=== PATIENT | female | born 1935 | race Caucasian/White ===

== ENCOUNTER 2018-08-09 14:49 | Emergency (ER) | payer MEDICARE, BC ==
[2018-08-09] MEDS ORDERED: NS 0.9% 1000 ML** 1,000 ML IV ONE (14:59)
[2018-08-09] MEDS ORDERED: Ondansetron INJ* 2 MG/ML VIAL IV ONE (14:59)
[2018-08-09] MEDS ORDERED: Aspirin 81 mg CHEW TAB* 81 MG TAB.CHEW PO ONE (14:59)
[2018-08-09 15:02] VITALS: BP 127/53
--- NOTE | 2018-08-09 15:02 | ED ---
Abdominal Pain/Female - HPI Summary HPI Summary: 83-year-old female brought in by family member with abrupt onset of upper abdominal pain becoming chest pain approximately 30 minutes ago. This was associated with vomiting as well and a weak feeling. She also had some shortness of breath. Her pain in the upper abdomen and chest continues but has gotten better. She denies any fever, back pain or headache. She's never had anything like this in the past. She denies cardiac history. She was trying to get to the ER however got sick and had to come here. 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 Negative: Fever Eyes: Negative ENT: Negative Positive: Chest Pain Positive: Shortness Of Breath. Negative: Cough Positive: Abdominal Pain, Vomiting, Nausea. Negative: Diarrhea Genitourinary: Negative Negative: Decreased ROM Skin: Negative Negative: Headache All Other Systems Reviewed And Are Negative: Yes Physical Exam Triage Information Reviewed: Yes Vital Signs Reviewed: Yes Appearance: Positive: Ill-Appearing, Pain Distress Skin: Positive: Warm, Skin Color Reflects Adequate Perfusion, Dry Head/Face: Positive: Normal Head/Face Inspection Eyes: Positive: EOMI ENT: Positive: Normal ENT inspection Neck: Positive: Supple Respiratory/Lung Sounds: Positive: Clear to Auscultation Cardiovascular: Positive: RRR Abdomen Description: Positive: Nontender, Soft, Other: - Pain out of proportion Musculoskeletal: Positive: Normal, Strength/ROM Intact Neurological: Positive: Normal, Sensory/Motor Intact, Alert, Oriented to Person Place, Time Psychiatric: Positive: Anxious Diagnostics - Laboratory Lab Results: sugar 134 Lab Statement: Any lab studies that have been ordered have been reviewed, and results considered in the medical decision making process. - EKG EKG 1 Cardiac Rate: NL - 81 EKG Rhythm: Sinus Rhythm ST Segment: Non-Specific Ectopy: None EKG Comparison: Other - No others available Summary of EKG Findings: Low-voltage Abdominal Pain Fem Course/Dx - Course Course Of Treatment: Nurse's notes reviewed. Patient presents acutely ill with chest and abdominal pain not appropriate for urgent care. Ambulance service arranged for emergent transport to the ER. Discussed with ER who accepts. EKG nondiagnostic. Zofran, aspirin and IV fluids started. Blood sugar to be checked. - Diagnoses Differential Diagnosis: Positive: Other - Mesenteric ischemia, acute coronary syndrome, gallbladder disease Provider Diagnoses: Chest pain, Abdominal pain, Vomiting - Provider Notifications Discussed Care Of Patient With: Rea Monique - accept to the ER. [facility] arranged. Discharge - Sign-Out/Discharge Documenting (check all that apply): Patient Departure All imaging exams completed and their final reports reviewed: No Studies - Discharge Plan Condition: Guarded Disposition: TRANS HIGHER LVL OF CARE FAC Additional Instructions: go directly to ER - Billing Disposition and Condition Condition: GUARDED Disposition: Trans Higher Lvl of Care Fac - Attestation Statements Document Initiated by Scribe: No
== END 2018-08-09 15:15 | disposition short-term general hospital (02) ==
LOC: UCEAST 14:49
DX: R07.9 Chest pain, unspecified (principal); R11.10 Vomiting, unspecified; R06.02 Shortness of breath; R10.10 Upper abdominal pain, unspecified
CPT/HCPCS: 96374; 99203; A9270-GY; G0463; J2405

== ENCOUNTER 2018-08-09 15:46 | Inpatient (IN) | payer MEDICARE, BC ==
[2018-08-09] MEDS ORDERED: NS 0.9% 1000 ML** 1,000 ML IV ONE (16:26)
--- NOTE | 2018-08-09 16:27 | ED ---
HPI Chest Pain - HPI Summary HPI Summary: Pt is an 83 y/o F presenting to the ED with a chief complaint of pain diffuse across her abd and chest. She woke up this morning with diarrhea, had abd pain, and tried to take off her back brace which did not help so she decided to go to . The pt reports severe nausea and feeling like something is sitting on her chest. She denies vomiting. - History of Current Complaint Chief Complaint: EDGeneral Time Seen by Provider: 08/09/18 16:05 Hx Obtained From: Patient Onset/Duration: Started Hours Ago, Resolved Timing: Constant Initial Severity: Mild Current Severity: None Pain Intensity: 0 Pain Scale Used: 0-10 Numeric Chest Pain Location: Diffuse Chest Pain Radiates: Yes Chest Pain Radiates To:: Epigastric Character: Heaviness Aggravating Factor(s): Nothing Alleviating Factor(s): Nothing Associated Signs and Symptoms: Positive: Chest Pain, Nausea, Back Pain, Abdominal Pain. Negative: Cough, Vomiting - Allergy/Home Medications Allergies/Adverse Reactions: Allergies Allergy/AdvReac Type Severity Reaction Status Date / Time niacin Allergy Unknown Unknown Verified 08/10/18 00:52 Reaction Details codeine Allergy Itching Verified 08/09/18 16:04 PMH/Surg Hx/FS Hx/Imm Hx Previously Healthy: No Endocrine/Hematology History: Denies: Hx Diabetes, Hx Thyroid Disease Cardiovascular History: Reports: Hx Hypertension Denies: Hx Myocardial Infarction Respiratory History: Denies: Hx Asthma, Hx Chronic Obstructive Pulmonary Disease (COPD) - Surgical History Surgery Procedure, Year, and Place: [facility]. T&A Infectious Disease History: No Infectious Disease History: Denies: Hx Hepatitis, Traveled Outside the in Last 30 Days - Family History Known Family History: Positive: Other - no others acutely ill Negative: Cardiac Disease - Social History Alcohol Use: None Hx Substance Use: No Substance Use Type: Reports: None Hx Tobacco Use: No Smoking Status (MU): Never Smoked Tobacco Review of Systems Negative: Fever Positive: Chest Pain Negative: Cough Positive: Abdominal Pain, Diarrhea, Nausea. Negative: Vomiting Positive: Myalgia All Other Systems Reviewed And Are Negative: Yes Physical Exam - Summary Physical Exam Summary: GENERAL: Patient is a well-developed and nourished F who is lying comfortable in the stretcher. Patient is not in any acute respiratory distress. HEAD AND FACE: Normocephalic EYES: PERRLA, EOMI x 2. EARS: Hearing grossly intact. MOUTH: Oropharynx within normal limits. NECK: Supple, trachea is midline, no adenopathy, no JVD, no carotid bruit. CHEST: Symmetric, no tenderness at palpation LUNGS: Clear to auscultation bilaterally. No wheezing or crackles. CVS: Regular rate and rhythm, S1 and S2 present, no murmurs or gallops appreciated. ABDOMEN: Soft, non-tender. Bowel sounds are normal. No abdominal abnormal pulsations. EXTREMITIES: Full ROM in all major joints, no edema, no cyanosis or clubbing. NEURO: Alert and oriented x 3. No acute neurological deficits. Speech is normal and follows commands. SKIN: Dry and warm Triage Information Reviewed: Yes Vital Signs On Initial Exam: Initial Vitals Temp Pulse Resp BP Pulse Ox 97.9 F 72 15 123/59 99 08/09/18 16:02 08/09/18 16:02 08/09/18 16:02 08/09/18 16:02 08/09/18 16:02 Vital Signs Reviewed: Yes Diagnostics - Vital Signs Vital Signs Temp Pulse Resp BP Pulse Ox 08/09/18 16:02 97.9 F 72 15 123/59 99 - Laboratory Result Diagrams: 08/10/18 05:59 08/10/18 05:59 Lab Statement: Any lab studies that have been ordered have been reviewed, and results considered in the medical decision making process. - Radiology Chest x-ray Radiology Interpretation Completed By: Radiologist Summary of Radiographic Findings: No radiographic evidence for acute cardiopulmonary abnormality on this portable chest x-ray. ED physician has reviewed this report. - EKG 1623 Cardiac Rate: NL - 67bpm EKG Rhythm: Sinus Rhythm ST Segment: Normal Ectopy: PACs Summary of EKG Findings: Inverted T-waves in inferior leads. Chest Pain Course/Dx - Course Course Of Treatment: Pt is an 83 y/o F presenting to the ED with a chief complaint of pain diffuse across her abd and chest. She woke up this morning with diarrhea, had abd pain, and tried to take off her back brace which did not help so she decided to go to . The pt reports severe nausea and feeling like something is sitting on her chest. The pt will be signed out to Dr. Kline pending CTA chest and repeat labs due to elevated D-dimer. - Diagnoses Provider Diagnoses: Chest pain Discharge - Sign-Out/Discharge Documenting (check all that apply): Patient Departure, Sign-Out Patient Signing out patient TO: Medardo Kline - Discharge Plan Condition: Stable Disposition: ADMITTED TO [facility] - Billing Disposition and Condition Condition: STABLE Disposition: Admitted to [facility] - Attestation Statements Document Initiated by Scribe: Yes Documenting Scribe: Lidia Dean Provider For Whom Stella is Documenting (Include Credential): Reza Bearden MD. Scribe Attestation: Lidia Schwartz, winsomeed for Reza Bearden MD. on 08/11/18 at 1041. Scribe Documentation Reviewed: Yes Provider Attestation: The documentation as recorded by the Lidia gibson accurately reflects the service I personally performed and the decisions made by Rosanne rouse MD. Status of Scribe Document: Viewed
[2018-08-09 17:16] LABS: Influenza A Molecular NEGATIVE (Negative); Influenza B Molecular NEGATIVE (Negative)
[2018-08-09 17:29] LABS: ABS Basophils 0 10^3/ul (0-0.2); ABS Eosinophils 0.2 10^3/ul (0-0.6); ABS Monocytes 0.5 10^3/ul (0-0.8); ABS Neutrophils 6.4 10^3/ul (1.5-7.7); ABS Nucleated RBC 0 10^3/ul; Eosinophil % 2.8 %; Hematocrit 21 % (35-47); Hemoglobin 7.2 g/dl (12.0-16.0); Lymphocyte % 12.8 %; Mean Corpuscular HGB Conc 34 g/dl (31-36); Mean Corpuscular Hemoglobin 32 pg (27-31); Mean Corpuscular Volume 96 fL (80-97); Mean Platelet Volume 8.1 fL (7.4-10.4); Nucleated Red Blood Cells % 0; Platelet Count 131 10^3/ul (150-450); Red Blood Count 2.23 10^6/ul (4.00-5.40); Red Cell Distribution Width 14 % (10.5-15); White Blood Count 8.2 10^3/ul (3.5-10.8)
[2018-08-09 17:39] LABS: Activated Partial Thrombo Time 22.5 seconds (26.0-36.3); INR 0.99 (0.77-1.02)
[2018-08-09 17:53] LABS: Albumin 2.1 g/dL (3.2-5.2); Albumin/Globulin Ratio 1.5 (1-3); BUN/Creatinine Ratio 13.7 (8-20); EGFR African American 92.4 (>60); EGFR Non-African American 76.3 (>60); Globulin 1.4 g/dL (2-4); Total Bilirubin 0.5 mg/dL (0.2-1.0); Total Protein 3.5 g/dL (6.4-8.9); Troponin I 0.01 ng/mL (<0.04)
[2018-08-09 17:55] LABS: Potassium 2.5 mmol/L (3.5-5.0)
[2018-08-09 17:56] LABS: Calcium 5.1 mg/dL (8.6-10.3)
[2018-08-09] MEDS ORDERED: Iohexol 350* (CONTRAST) 500 ML MDV IV ONE (18:33)
[2018-08-09 18:51] LABS: Urine Appearance Cloudy; Urine Bilirubin Negative (Negative); Urine Blood Negative (Negative); Urine Color Yellow; Urine Glucose Negative (Negative); Urine Ketones Negative (Negative); Urine Nitrite Negative (Negative); Urine Protein Negative (Negative); Urine Specific Gravity 1.004 (1.010-1.030); Urine Urobilinogen Negative (Negative)
[2018-08-09 18:53] LABS: Albumin 3.9 g/dL (3.2-5.2); Albumin/Globulin Ratio 1.5 (1-3); BUN/Creatinine Ratio 10.9 (8-20); Calcium 9.6 mg/dL (8.6-10.3); EGFR African American 44.3 (>60); EGFR Non-African American 36.6 (>60); Globulin 2.6 g/dL (2-4); Potassium 4.2 mmol/L (3.5-5.0); Total Bilirubin 0.8 mg/dL (0.2-1.0); Total Protein 6.5 g/dL (6.4-8.9); Troponin I 0.01 ng/mL (<0.04)
--- NOTE | 2018-08-09 19:09 | ED ---
Progress - Progress Note Progress Note: Received pt sign out from Dr. Bearden awaiting CTA chest and repeat labs due to elevated D-dimer. CTA chest reveals no acute findings or pulmonary embolus. CTA chest does show cardiomegaly, coronary artery disease, hiatal hernia, and small bilateral low-density thyroid nodules. Spoke with Dr. Hilton who agreed to admit pt. Pt diagnosed with chest pain and agreeable with plan. - Results/Orders Results/Orders: CT Chest IMPRESSION: 1. No acute findings. No pulmonary embolus. 2. Cardiomegaly. Coronary artery disease. 3. Hiatal hernia. 4. Small bilateral low-density thyroid nodules. No further workup is indicated. ED Physician reviewed this report. Course/Dx - Course Course Of Treatment: Received pt sign out from Dr. Bearden awaiting CTA chest and repeat labs due to elevated D-dimer. CTA chest reveals no acute findings or pulmonary embolus. CTA chest does show cardiomegaly, coronary artery disease, hiatal hernia, and small bilateral low-density thyroid nodules. Spoke with Dr. Hilton who agreed to admit pt. Pt diagnosed with chest pain and agreeable with plan. - Diagnoses Provider Diagnoses: Chest pain - Provider Notifications Discussed Care Of Patient With: Lidia Hilton Time Discussed With Above Provider: 08:00 Instructed by Provider To: Other - Agreed to admit. Discharge - Sign-Out/Discharge Documenting (check all that apply): Patient Departure - Admit Receiving patient FROM: Reza Bearden Patient Received Moderate/Deep Sedation with Procedure: No - Discharge Plan Condition: Stable Disposition: ADMITTED TO [facility] - Billing Disposition and Condition Condition: STABLE Disposition: Admitted to [facility] - Attestation Statements Document Initiated by Stella: Yes Documenting Scribe: Bailee Acosta Provider For Whom Stella is Documenting (Include Credential): Dr. Medardo Kline MD Scribe Attestation: Bailee Schwartz scribed for Dr. Medardo Kline MD on 08/13/18 at 1413. Scribe Documentation Reviewed: Yes Provider Attestation: The documentation as recorded by the Bailee gibson accurately reflects the service I personally performed and the decisions made by me, Dr. Medardo Kline MD Status of Scribe Document: Viewed
[2018-08-09 19:51] LABS: ABS Basophils 0 10^3/ul (0-0.2); ABS Eosinophils 0.5 10^3/ul (0-0.6); ABS Lymphocytes 2.3 10^3/ul (1.0-4.8); ABS Monocytes 0.6 10^3/ul (0-0.8); ABS Nucleated RBC 0 10^3/ul; Eosinophil % 4.3 %; Hematocrit 36 % (35-47); Hemoglobin 11.9 g/dl (12.0-16.0); Mean Corpuscular HGB Conc 33 g/dl (31-36); Mean Corpuscular Hemoglobin 31 pg (27-31); Mean Corpuscular Volume 95 fL (80-97); Mean Platelet Volume 8.5 fL (7.4-10.4); Nucleated Red Blood Cells % 0; Platelet Count 213 10^3/ul (150-450); Red Blood Count 3.79 10^6/ul (4.00-5.40); Red Cell Distribution Width 14 % (10.5-15); White Blood Count 11.5 10^3/ul (3.5-10.8)
[2018-08-09 20:58] LABS: C Reactive Protein 6.41 mg/L (<8.01)
[2018-08-09 21:10] LABS: TSH (Thyroid Stimulating Horm) 4.66 mcIU/mL (0.34-5.60)
[2018-08-09 21:21] LABS: Magnesium 1.8 mg/dL (1.9-2.7)
--- NOTE | 2018-08-09 23:00 | HP ---
Dr. Celaya at [facility] HISTORY AND PHYSICAL: DATE OF ADMISSION: 08/09/18 TIME OF EVALUATION: 1999 PRIMARY CARE PHYSICIAN: Dr. Celaya at [facility]. CHIEF COMPLAINT: Epigastric and chest pain. HISTORY OF PRESENT ILLNESS: This is an 83-year-old female with past medical history of hypertension and hyperlipidemia, who presents to the emergency room with acute onset of epigastric chest pain. Th e patient states she had a prolonged hospitalization at [facility] in April 2018 for "ulcerations on her colon and bad infection." She states she has been weak since then. Yesterday, she felt more weak and she felt off this morning. She woke up this morning, had some diarrhea, went back to bed a nd then she got up, had her usual breakfast of cereal and cappuccino, took a shower and then she went to go shopping with her daughter. While she was in the car, she developed acute onset of epigastric pain radiating up to her chest. She has back pain, was wearing a new back brace and she thought it w as related to this, but the pain was excruciating, bringing her to tears. She was nauseated. She gandhi d her daughter lumber puller. Her symptoms did subside somewhat. Someone at the gas station recommended she go to [facility]. When [facility] went to [facility], they gave her 4 baby aspirin, called an ambulance and recommended she come to the emergency room. When she was in EMS, she got significant chest pressure. She felt like something was weighing on her chest. They gave her sublingual nitro, which helped. Since then, the pain has not recurred, it has completely resolved, but she still does not feel right. She denies any further diarrhea. No further nausea. No vomiting. No fevers. No U RI illness. No recent changes in her weight. She has had good appetite. She states she has had a s tress test years ago that was unremarkable. Otherwise, review of systems is negative. In the emergen cy room, the patient had labs, imaging, was given a liter of fluid and referred to the hospitalist se kendrick for further evaluation. PAST MEDICAL HISTORY: 1. History of back pain. 2. Hyperlipidemia. 3. Hypertension. 4. Gout. 5. History of prolonged hospitalization at [facility] in April 2018 for "ulceration of the colon and bad infection." PAST SURGICAL HISTORY: 1. History of cholecystectomy. 2. T and A. 3. Appendectomy. MEDICATIONS: 1. The patient states she takes metoprolol daily in the morning. 2. Allopurinol. 3. Simvastatin. 4. Baby aspirin. She states she takes other medications, but she is not sure which. ALLERGIES: She states she is also allergic to NIACIN in addition to CODEINE. FAMILY HISTORY: Mother from colon cancer at age 81. Father from emphysema age 67. SOCIAL HISTORY: The patient lives in [place]. She lives alone. She is independent of her ADLs. She ambulates with a cane. No recent falls. She denies history of smoking. Rare alcohol use. Her heal thcare proxy is her daughter, Ruthie. She is a full code. She has 6 children. REVIEW OF SYSTEMS: A 14-point review of systems as mentioned in the HPI, otherwise negative. PHYSICAL EXAMINATION GENERAL: No acute distress, resting comfortably. VITAL SIGNS: Temp is 97.9, pulse rate 66, respiratory rate 16, oxygen saturation 97% on room air, bl ood pressure 136/79. HEENT: Head: Normocephalic. Pupils are equal and reactive. Anicteric. Oropharynx: Mucous membran es are moist. NECK: Supple. No adenopathy. RESPIRATORY: Clear to auscultation. No wheezes, rhonchi, or rales. CARDIAC: Regular rate and rhythm. Harsh systolic murmur most prominent at the left sternal base. ABDOMEN: Hypoactive bowel sounds, soft. Some diffuse tenderness in the epigastric right upper quadr ant region. EXTREMITIES: No clubbing, cyanosis, or edema. +1 DPs. NEUROLOGIC: Alert and oriented x3. No gross focal neurologic deficits. DIAGNOSTIC STUDIES/LABORATORY DATA: White count 11.5, hemoglobin 11.9, hematocrit 36, platelets 213 . D-dimer is 389. Sodium 141, potassium 4.2, chloride 107, bicarb 26, BUN 15, creatinine 1.38, mag is 1.8. AST is 189, ALT is 104, bili is 0.8, alk phos is 82. TSH is 4.66. UA is unremarkable. Flu is negative. Radiographic Data: Chest x-ray, no radiographic evidence for acute cardiopulmonary abnormality on th is portable chest x-ray. EKG has sinus rhythm with the rate of 67, flattened T wave, no EKG to gilbert re to. Chest CTA: No acute findings, no PE, cardiomegaly, coronary artery disease, hiatal hernia, s mall bilateral low density thyroid nodules. No further workup needed. ASSESSMENT: This is an 83-year-old female with a past medical history of hypertension and hyperlipid emia, who presents to the emergency room with acute onset of epigastric chest pain. 1. Epigastric and chest pain. Assessment: The patient also noted to have elevated liver function t ests as well. It is possible this is acute coronary syndrome. Her initial troponin is negative. Sh e got full dose aspirin. She is chest pain free. I am also concerned for possibly right upper quadr ant pathology including choledocholithiasis. Plan: We will order an ultrasound to rule out any bili mario duct pathology. We do not have GI coverage and if there is, then she needs to be transferred. I f this is unremarkable, we will admit her for ACS rule out. Keep her n.p.o. after midnight and order a nuclear stress test. Continue on her baby aspirin. We will need to get a med rec to obtain her me toprolol dose, but we will continue on a low dose of that as well. Continue to trend her troponin. The patient does have a harsh systolic murmur on exam, may benefit from an outpatient echo or if her stress test is abnormal for further workup for this as well. 2. Chronic medical problems: Hypertension. We will resume her metoprolol as mentioned. We will ne ed a med rec. 3. Hyperlipidemia. We will check her lipid panel in the morning and continue on atorvastatin in eduardo ce of simvastatin. 4. Gout. We will place her on low dose allopurinol. 5. FEN: We will order a heart-healthy diet, n.p.o. after midnight for stress test. 6. DVT prophylaxis: The patient scores high risk. We will place her on heparin subcu t.i.d. 7. Code status: Full code. PATIENT TIME: Greater than 45 minutes was spent doing the history and physical, more than half the t sasha spent in direct patient contact. [id number]/[facility] #: [id number]
[2018-08-09] MEDS ORDERED: Acetaminophen TAB* 325 MG PO PRN (23:38)
[2018-08-09] MEDS ORDERED: Al Hydrox/Mg Hydrox/Simet LIQ* 30 ML UDC PO PRN (23:38)
[2018-08-09] MEDS ORDERED: Ondansetron INJ* 2 MG/ML VIAL IV PRN (23:38)
[2018-08-09] MEDS ORDERED: NS 0.9% 1000 ML** 1,000 ML IV SCH (23:45)
[2018-08-10] MEDS: Heparin VIAL(*) 5000 UNITS/ML VIAL (FIVE THOUSAND) SUBCUT SCH ×3 (06:00→21:52)
[2018-08-10 06:35] LABS: Albumin 3.4 g/dL (3.2-5.2); Albumin/Globulin Ratio 1.4 (1-3); BUN/Creatinine Ratio 11.7 (8-20); Calcium 9.1 mg/dL (8.6-10.3); Globulin 2.4 g/dL (2-4); HDL Cholesterol 26.3 mg/dL; Indirect Bilirubin 0.6 mg/dL (0.3-1.0); Potassium 3.8 mmol/L (3.5-5.0); Total Bilirubin 0.7 mg/dL (0.2-1.0); Total Protein 5.8 g/dL (6.4-8.9)
[2018-08-10 06:49] LABS: ABS Basophils 0 10^3/ul (0-0.2); ABS Eosinophils 1.1 10^3/ul (0-0.6); ABS Lymphocytes 3.4 10^3/ul (1.0-4.8); ABS Monocytes 0.7 10^3/ul (0-0.8); ABS Neutrophils 4.4 10^3/ul (1.5-7.7); ABS Nucleated RBC 0 10^3/ul; Eosinophil % 11.6 %; Hematocrit 33 % (35-47); Hemoglobin 11.1 g/dl (12.0-16.0); Lymphocyte % 35.6 %; Mean Corpuscular HGB Conc 33 g/dl (31-36); Mean Corpuscular Hemoglobin 32 pg (27-31); Mean Corpuscular Volume 95 fL (80-97); Mean Platelet Volume 8.7 fL (7.4-10.4); Nucleated Red Blood Cells % 0.1; Platelet Count 190 10^3/ul (150-450); Red Blood Count 3.51 10^6/ul (4.00-5.40); Red Cell Distribution Width 14 % (10.5-15); White Blood Count 9.7 10^3/ul (3.5-10.8)
[2018-08-10] MEDS: Metoprolol Succinate XL TAB* 25 MG PO SCH (08:53)
[2018-08-10] MEDS: Aspirin 81 mg CHEW TAB* 81 MG TAB.CHEW PO SCH (08:53)
[2018-08-10] MEDS: Allopurinol TAB* 100 MG PO SCH (08:53)
--- NOTE | 2018-08-10 16:00 | PN ---
Subjective Date of Service: 08/10/18 Interval History: Patient seen and examined. States chest pain is resolved for the most part. Cannot have stress test until Sunday, tolerating meal without issue. Discussed US results. patient agreeable to ECHO tomorrow. Objective Active Medications: Acetaminophen (Tylenol Tab*) 650 mg PO Q4H PRN PRN Reason: FEVER/PAIN Al Hydrox/Mg Hydrox/Simethicone (Maalox Plus*) 30 ml PO Q6H PRN PRN Reason: INDIGESTION Allopurinol (Zyloprim Tab*) 100 mg PO DAILY [facility] Last Admin: 08/10/18 08:53 Dose: 100 mg Aspirin (Aspirin 81 Mg Chew Tab*) 81 mg PO DAILY [facility] Last Admin: 08/10/18 08:53 Dose: 81 mg Atorvastatin Calcium (Lipitor*) 20 mg PO 1700 [facility] Heparin Sodium (Porcine) (Heparin Vial(*)) 5,000 units SUBCUT Q8HR [facility] Last Admin: 08/10/18 15:03 Dose: 5,000 units Metoprolol Succinate (Toprol Xl Tab*) 25 mg PO DAILY [facility] Last Admin: 08/10/18 08:53 Dose: 25 mg Ondansetron HCl (Zofran Inj*) 4 mg IV Q4H PRN PRN Reason: NAUSEA/VOMITING Vital Signs - 8 hr 08/10/18 08/10/18 08/10/18 08:52 11:45 15:18 Temperature 97.5 F 97.3 F Pulse Rate 66 61 65 Respiratory 21 16 Rate Blood Pressure 135/70 147/59 (mmHg) O2 Sat by Pulse 96 96 Oximetry Oxygen Devices in Use Now: None Appearance: alert, well appearing, NAD Eyes: No Scleral Icterus, PERRLA Ears/Nose/Mouth/Throat: NL Teeth, Lips, Gums, Mucous Membranes Moist Neck: NL Appearance and Movements; NL JVP, Trachea Midline Respiratory: Symmetrical Chest Expansion and Respiratory Effort, Clear to Auscultation Cardiovascular: RRR, No Edema, - - grade II/ murmur Abdominal: NL Sounds; No Tenderness; No Distention Extremities: No Edema, No Clubbing, Cyanosis Skin: No Rash or Ulcers Neurological: Alert and Oriented x 3, NL Gait Nutrition: Taking PO's Result Diagrams: 08/10/18 05:59 08/10/18 05:59 Microbiology and Other Data: Microbiology 08/09/18 16:40 Influenza Types A,B Antigen - Final Nasal Specimen received for Influenza A/B Molecular testing Diagnostic Imaging: Patient Name: MAXIME VALDES Medical Record#: [id number] Ordering Physician: Lidia Hilton DO Acct.#: [id number] : 1935 Age: 83 Sex: F Location: EMERGENCY DEPARTMENT Exam Date: 08/09/182036 ADM Status: REG ER Order Information: US ABDOMEN LIMITED Accession Number: [id number] CPT: 19923 EXAM: US Abdomen Limited, Right Upper Quadrant EXAM DATE/TIME: 08/09/2018 9:50 PM CLINICAL HISTORY: 83 years old, female; Abnormal findings; Abnormal lab test; Elevated liver enzymes; Prior surgery; Surgery date: Post-operative (0-2 days); Surgery type: Cholecystectomy; Additional info: Abdominal pain, elevated lfts, R/O gb/liver diseas TECHNIQUE: Real-time ultrasound of the abdomen with image documentation. Examination was focused on the right upper quadrant. COMPARISON: No relevant prior studies available. FINDINGS: Liver: The liver is diffusely echogenic consistent with fatty infiltration. No focal mass or intrahepatic biliary dilatation. Gallbladder: Not visualized. Surgically absent per history. Common bile duct: Common bile duct measures 0.5 cm. Pancreas: The pancreatic tail and uncinate process are obscured by bowel gas. Remainder of the gland is normal in appearance. Right kidney: Right kidney measures 4.4 x 4.2 x 10.3 cm. No obvious mass, shadowing stones, or hydronephrosis. IMPRESSION: 1. No acute findings. Postcholecystectomy. 2. Hepatic steatosis. To contact [facility] with a general question: Operations Center - [phone] For direct physician to physician contact: Physician Hotline - [phone] [facility] ([facility] Facility ID #[id number]) Patient Name: MAXIME VALDES Medical Record#: [id number] Ordering Physician: Reza Bearden MD Acct.#: [id number] : 1935 Age: 83 Sex: F Location: EMERGENCY DEPARTMENT Exam Date: 08/09/181827 ADM Status: REG ER Order Information: CTA CHEST Accession Number: [id number] CPT: 73818 EXAM: CT Angiography Chest With Contrast EXAM DATE/TIME: 08/09/2018 6:53 PM CLINICAL HISTORY: 83 years old, female; Pain; Chest pain; Additional info: Cp TECHNIQUE: Axial computed tomographic angiography images of the chest with intravenous contrast using CT angiography protocol. All CT scans at this facility use at least one of these dose optimization techniques: automated exposure control; mA and/or kV adjustment per patient size (includes targeted exams where dose is matched to clinical indication); or iterative reconstruction. Coronal and sagittal reformatted images were created and reviewed. MIP reconstructed images were created and reviewed. CONTRAST: 71 ml of OMNIPAQUE 350 administered intravenously. COMPARISON: OT CXR PORTAP CHEST AP OR PORT 08/09/2018 4:35 PM FINDINGS: Pulmonary arteries: Normal. No pulmonary emboli. Aorta: The aorta demonstrates moderate atherosclerotic calcification. Thyroid: Heterogeneous thyroid gland with 6 mm low density nodule in right lobe and 9 mm low density nodule in left lobe. Lungs: No mass or consolidation. Pleural space: No pneumothorax. No pleural effusion. Heart: The heart is mildly enlarged. Coronary artery calcifications present in the LAD. Calcifications also present along the aortic valve. No significant pericardial effusion. Mediastinum: Small hiatal hernia. Gallbladder and bile ducts: Cholecystectomy clips are present in the gallbladder fossa. No biliary dilatation. Lymph nodes: A prominent subcarinal lymph node measures 1 cm AP. No grossly enlarged lymph nodes. Bones/joints: No acute fracture or aggressive osseous lesion. Soft tissues: Unremarkable. IMPRESSION: 1. No acute findings. No pulmonary embolus. 2. Cardiomegaly. Coronary artery disease. 3. Hiatal hernia. 4. Small bilateral low-density thyroid nodules. No further workup is indicated. COMMENT: Consistent with the [employer]'s Incidental Findings This report is only to be considered final once signed by the Provider(s) as displayed in the "<Electronically Signed by >" field (s). Absence of a signature indicates the report is in a draft status and still needs to be finalized. In the event this document was created by someone other than the signing Provider, the individual initiating the document will be listed in the "Entered by:" or "Dictated by:" [email or web address]. 1 of 2 Assess/Plan/Problems-Billing Assessment: This is an 83 year old female with history of gout, HLP, HTN that presented to ER with c/o severe chest pain. - Patient Problems (1) Chest pain Code(s): R07.9 - CHEST PAIN, UNSPECIFIED SNOMED Code(s): 01503047 Comment: - Epigastric and radiating to left chest, concerned that it was musculoskeltal (new back brace) - Pending stress test sunday - Will obtain ECHO to evaluate murmur/valves and LV function - CTA negative for PE - US Abd shows no CBD dilatation (2) Electrolyte abnormality Code(s): E87.8 - OTH DISORDERS OF ELECTROLYTE AND FLUID BALANCE, NEC SNOMED Code(s): 135940543 Comment: - Mag and Ca+ repleted - flu negative, had nausea but no vomiting? - Monitor labs which have normalized (3) Hypertension Code(s): I10 - ESSENTIAL (PRIMARY) HYPERTENSION SNOMED Code(s): 75772998 Comment: - Stable on metoprolol and ASA (4) Hyperlipemia Code(s): E78.5 - HYPERLIPIDEMIA, UNSPECIFIED SNOMED Code(s): 16147723 Comment: - Maintained on statin (5) Gout Code(s): M10.9 - GOUT, UNSPECIFIED SNOMED Code(s): 11845800 Comment: - Continue allopurinol (6) DVT prophylaxis Code(s): TAC6117 - SNOMED Code(s): 475136155 Comment: - HSQ (7) Full code status Code(s): Z78.9 - OTHER SPECIFIED HEALTH STATUS SNOMED Code(s): 330299298 Status and Disposition: Inpatient, plan for Stress Sunday. Dispo to home when medically optimized.
[2018-08-10] MEDS ORDERED: Atorvastatin* 20 MG TAB PO SCH (17:00)
[2018-08-11] MEDS: Heparin VIAL(*) 5000 UNITS/ML VIAL (FIVE THOUSAND) SUBCUT SCH ×3 (05:51→21:32)
[2018-08-11] MEDS: Metoprolol Succinate XL TAB* 25 MG PO SCH (09:25)
[2018-08-11] MEDS: Allopurinol TAB* 100 MG PO SCH (09:25)
[2018-08-11] MEDS: Aspirin 81 mg CHEW TAB* 81 MG TAB.CHEW PO SCH (09:25)
--- NOTE | 2018-08-11 10:40 | PN ---
Subjective Date of Service: 08/11/18 Interval History: No overnight events. Patient states she still gets the occasional chest pressure that is fleeting. No associated SOB or nausea. Has not told her nurse when it happens. Nothing like the initial inciting event. Ambulating. Tolerating PO. No abdominal pain. Friend at the bedside. Objective Active Medications: Acetaminophen (Tylenol Tab*) 650 mg PO Q4H PRN PRN Reason: FEVER/PAIN Al Hydrox/Mg Hydrox/Simethicone (Maalox Plus*) 30 ml PO Q6H PRN PRN Reason: INDIGESTION Allopurinol (Zyloprim Tab*) 100 mg PO DAILY [facility] Last Admin: 08/11/18 09:25 Dose: 100 mg Aspirin (Aspirin 81 Mg Chew Tab*) 81 mg PO DAILY [facility] Last Admin: 08/11/18 09:25 Dose: 81 mg Atorvastatin Calcium (Lipitor*) 20 mg PO 1700 [facility] Last Admin: 08/10/18 16:53 Dose: 20 mg Heparin Sodium (Porcine) (Heparin Vial(*)) 5,000 units SUBCUT Q8HR [facility] Last Admin: 08/11/18 05:51 Dose: 5,000 units Metoprolol Succinate (Toprol Xl Tab*) 25 mg PO DAILY [facility] Last Admin: 08/11/18 09:25 Dose: 25 mg Ondansetron HCl (Zofran Inj*) 4 mg IV Q4H PRN PRN Reason: NAUSEA/VOMITING Vital Signs - 8 hr 08/11/18 08/11/18 04:12 08:26 Temperature 98.2 F 96.8 F Pulse Rate 57 64 Respiratory 16 20 Rate Blood Pressure 131/62 145/65 (mmHg) O2 Sat by Pulse 97 98 Oximetry Oxygen Devices in Use Now: None Ears/Nose/Mouth/Throat: Mucous Membranes Moist Respiratory: Symmetrical Chest Expansion and Respiratory Effort, Clear to Auscultation Cardiovascular: - - harsh systolic murmur. RRR Abdominal: NL Sounds; No Tenderness; No Distention, No Hepatosplenomegaly Extremities: - - trace edema Neurological: Alert and Oriented x 3, NL Muscle Strength and Tone Result Diagrams: 08/10/18 05:59 08/10/18 05:59 Microbiology and Other Data: Microbiology 08/09/18 16:40 Influenza Types A,B Antigen - Final Nasal Specimen received for Influenza A/B Molecular testing Diagnostic Imaging: Patient Name: MAXIME VALDES Medical Record#: [id number] Ordering Physician: Lidia Hilton DO Acct.#: [id number] : 1935 Age: 83 Sex: F Location: EMERGENCY DEPARTMENT Exam Date: 08/09/182036 ADM Status: REG ER Order Information: US ABDOMEN LIMITED Accession Number: [id number] CPT: 88461 EXAM: US Abdomen Limited, Right Upper Quadrant EXAM DATE/TIME: 08/09/2018 9:50 PM CLINICAL HISTORY: 83 years old, female; Abnormal findings; Abnormal lab test; Elevated liver enzymes; Prior surgery; Surgery date: Post-operative (0-2 days); Surgery type: Cholecystectomy; Additional info: Abdominal pain, elevated lfts, R/O gb/liver diseas TECHNIQUE: Real-time ultrasound of the abdomen with image documentation. Examination was focused on the right upper quadrant. COMPARISON: No relevant prior studies available. FINDINGS: Liver: The liver is diffusely echogenic consistent with fatty infiltration. No focal mass or intrahepatic biliary dilatation. Gallbladder: Not visualized. Surgically absent per history. Common bile duct: Common bile duct measures 0.5 cm. Pancreas: The pancreatic tail and uncinate process are obscured by bowel gas. Remainder of the gland is normal in appearance. Right kidney: Right kidney measures 4.4 x 4.2 x 10.3 cm. No obvious mass, shadowing stones, or hydronephrosis. IMPRESSION: 1. No acute findings. Postcholecystectomy. 2. Hepatic steatosis. To contact [facility] with a general question: Operations Center - [phone] For direct physician to physician contact: Physician Hotline - [phone] [facility] ([facility] Facility ID #[id number]) Patient Name: MAXIME VALDES Medical Record#: [id number] Ordering Physician: Reza Bearden MD Acct.#: [id number] : 1935 Age: 83 Sex: F Location: EMERGENCY DEPARTMENT Exam Date: 08/09/181827 ADM Status: REG ER Order Information: CTA CHEST Accession Number: [id number] CPT: 55797 EXAM: CT Angiography Chest With Contrast EXAM DATE/TIME: 08/09/2018 6:53 PM CLINICAL HISTORY: 83 years old, female; Pain; Chest pain; Additional info: Cp TECHNIQUE: Axial computed tomographic angiography images of the chest with intravenous contrast using CT angiography protocol. All CT scans at this facility use at least one of these dose optimization techniques: automated exposure control; mA and/or kV adjustment per patient size (includes targeted exams where dose is matched to clinical indication); or iterative reconstruction. Coronal and sagittal reformatted images were created and reviewed. MIP reconstructed images were created and reviewed. CONTRAST: 71 ml of OMNIPAQUE 350 administered intravenously. COMPARISON: OT CXR PORTAP CHEST AP OR PORT 08/09/2018 4:35 PM FINDINGS: Pulmonary arteries: Normal. No pulmonary emboli. Aorta: The aorta demonstrates moderate atherosclerotic calcification. Thyroid: Heterogeneous thyroid gland with 6 mm low density nodule in right lobe and 9 mm low density nodule in left lobe. Lungs: No mass or consolidation. Pleural space: No pneumothorax. No pleural effusion. Heart: The heart is mildly enlarged. Coronary artery calcifications present in the LAD. Calcifications also present along the aortic valve. No significant pericardial effusion. Mediastinum: Small hiatal hernia. Gallbladder and bile ducts: Cholecystectomy clips are present in the gallbladder fossa. No biliary dilatation. Lymph nodes: A prominent subcarinal lymph node measures 1 cm AP. No grossly enlarged lymph nodes. Bones/joints: No acute fracture or aggressive osseous lesion. Soft tissues: Unremarkable. IMPRESSION: 1. No acute findings. No pulmonary embolus. 2. Cardiomegaly. Coronary artery disease. 3. Hiatal hernia. 4. Small bilateral low-density thyroid nodules. No further workup is indicated. COMMENT: Consistent with the [employer]'s Incidental Findings This report is only to be considered final once signed by the Provider(s) as displayed in the "<Electronically Signed by >" field (s). Absence of a signature indicates the report is in a draft status and still needs to be finalized. In the event this document was created by someone other than the signing Provider, the individual initiating the document will be listed in the "Entered by:" or "Dictated by:" [email or web address]. 1 of 2 Assess/Plan/Problems-Billing Assessment: This is an 83 year old female with history of gout, HLP, HTN that presented to ER with c/o severe chest pain. - Patient Problems (1) Chest pain Current Visit: Yes Status: Acute Code(s): R07.9 - CHEST PAIN, UNSPECIFIED SNOMED Code(s): 19421598 Comment: A. Intermittent. No intensity like initial event. CTA and US of Abdomen - unremarkable - Epigastric and radiating to left chest, concerned that it was musculoskeltal (new back brace) - Pending stress test sunday - Will obtain ECHO to evaluate murmur/valves and LV function (2) Transaminitis Current Visit: Yes Status: Acute Code(s): R74.0 - NONSPEC ELEV OF LEVELS OF TRANSAMNS & LACTIC ACID DEHYDRGNSE SNOMED Code(s): 868435536 Comment: A. Unclear the etiology - ischemic event? Downtrending. US - Negative for bile duct stone Plan Repeat labs in AM (3) Gout Current Visit: Yes Status: Acute Code(s): M10.9 - GOUT, UNSPECIFIED SNOMED Code(s): 07650109 Comment: - Continue allopurinol (4) Hyperlipemia Current Visit: Yes Status: Acute Code(s): E78.5 - HYPERLIPIDEMIA, UNSPECIFIED SNOMED Code(s): 32280306 Comment: LDL: 65 Hold statin until LFts are more normalized (5) Hypertension Current Visit: Yes Status: Acute Code(s): I10 - ESSENTIAL (PRIMARY) HYPERTENSION SNOMED Code(s): 11483201 Comment: - Stable on metoprolol and ASA (6) Full code status Current Visit: Yes Status: Acute Code(s): Z78.9 - OTHER SPECIFIED HEALTH STATUS SNOMED Code(s): 943217812 (7) DVT prophylaxis Current Visit: Yes Status: Acute Code(s): BQS6329 - SNOMED Code(s): 092280184 Comment: - HSQ Status and Disposition: Inpatient, plan for Stress Sunday. Dispo to home when medically optimized.
--- NOTE | 2018-08-11 18:38 | ECHO ---
Patient: MAXIME VALDES [facility] Rec#: [id number] : 1935 Date: 08/11/2018 Age: 83y Height: 160 cm / 63.0 in Weight: 80 kg / 176.3 lbs Sex: F BSA: 1.83 Room#: [facility] Admit Date#: 08/09/2018 Type: Inpatient Referring: Ana Laura Summers Reading: Gary Segundo MD Manager Consumer Insights: Holley Smith RD Transthoracic Echocardiogram Indication: Murmur BP: 131/62 HR: 76 Rhythm: NSR Findings History: HTN, HLD. Technical Comments: The study quality is fair. Completed at 1230. Left Ventricle: The left ventricular chamber size is normal. There is no left ventricular hypertrophy. Global left ventricular wall motion and contractility are within normal limits. There is normal left ventricular systolic function. The estimated ejection fraction is 55-60%. Abnormal left ventricular diastolic function is observed. Abnormal left ventricular diastolic filling is observed, consistent with impaired relaxation. Left Atrium: The left atrium is severely dilated. Right Ventricle: Moderator Band present. The right ventricle is moderately dilated. The right ventricle wall thickness is moderately increased. The right ventricular global systolic function is normal. Right Atrium: The right atrium is moderately dilated. Aortic Valve: The aortic valve is trileaflet. Mild aortic leaflet calcification is visualized. Systolic excursion of the aortic valve cusps is reduced. There is mild aortic regurgitation. There is mild aortic stenosis. The mean gradient of the aortic valve is 8 mmHg. The peak instantaneous gradient of the aortic valve is 17 mmHg. The aortic valve area, by peak velocities, is calculated at 1.5 cm2. The aortic valve area, by VTI's, is calculated at 1.7 cm2. The measured aortic regurgitation pressure half-time is 531 msec. Mitral Valve: There is mitral annular calcification. The mitral valve leaflets are mildly thickened. There is mild to moderate mitral regurgitation. There is no evidence of mitral stenosis. Tricuspid Valve: The tricuspid valve leaflets are normal. There is mild tricuspid regurgitation. The right ventricular systolic pressure is estimated at 33 mmHg. There is no tricuspid stenosis. Pulmonic Valve: The pulmonic valve appears normal. There is a trace pulmonic regurgitation. There is no pulmonic stenosis. Pericardium: There is no significant pericardial effusion. A pericardial fat pad is visualized. Aorta: There is no dilatation of the ascending aorta. There is no dilatation of the aortic arch. The aortic root is normal in size. Pulmonary Artery: The main pulmonary artery is not well visualized. Venous: The inferior vena cava is dilated. There is a greater than 50% respiratory change in the inferior vena cava dimension. Summary: There was not any prior study for comparison. Conclusions Global left ventricular wall motion and contractility are within normal limits. There is normal left ventricular systolic function. The estimated ejection fraction is 55-60%. The right ventricular global systolic function is normal. Systolic excursion of the aortic valve cusps is reduced. There is mild aortic regurgitation. There is mild aortic stenosis. The mean gradient of the aortic valve is 8 mmHg. There is mild to moderate mitral regurgitation. There is mild tricuspid regurgitation. The right ventricular systolic pressure is estimated at 33 mmHg. There is no significant pericardial effusion. Measurements Name Value Normal Range RVIDd (AP) 2D 3.2 cm (0.9 - 2.6) RVDdMajor (2D) 5 cm (2.2 - 4.4) RVAW (2D) 1 cm (0.2 - 0.5) RAd ISD 4CH 5.7 cm (3.4 - 4.9) RA (A4C)W 4.7 cm (2.9 - 4.6) IVSd (2D) 1 cm (0.6 - 1) LVPWd (2D) 1 cm (0.6 - 1) LVIDd (2D) 4.6 cm (3.6 - 5.4) LVIDs (2D) 3.5 cm - LV FS (2D) 23 % (25 - 45) Aortic Annulus 2 cm (1.4 - 2.6) Ao root diameter (2D) 3.2 cm (2.1 - 3.5) Ascending Ao 3 cm (2.1 - 3.4) Aortic arch 3.1 cm (1.8 - 3.4) LA dimension (AP) 2D 4.3 cm (2.3 - 3.8) LAd ISD 4CH 6.4 cm (2.9 - 5.3) LA ISD 4CH W 5.5 cm (2.5 - 4.5) Name Value Normal Range LA ESV BP (A/L) index 52 ml/m2 - Name Value Normal Range MV E-wave Vmax 0.8 m/sec - MV deceleration time 183 msec - MV A-wave Vmax 1 m/sec - MV E:A ratio 0.8 ratio - LV septal e' Vmax 0.06 m/sec - LV lateral e' Vmax 0.08 m/sec - Name Value Normal Range AV Vmax 2.1 m/sec - AV VTI 48 cm - AV peak gradient 17 mmHg - AV mean gradient 8 mmHg - LVOT diameter 2 cm - LVOT Vmax 1 m/sec - LVOT VTI 25.4 cm - LVOT peak gradient 4 mmHg - LVOT mean gradient 2 mmHg - DOI (VTI) 0.53 ratio - ROWENA (continuity Vmax) 1.5 cm2 - ROWENA (continuity VTI) 1.7 cm2 - AR PHT 531 msec - MAIA Vmax 0.6 m/sec - Name Value Normal Range TR Vmax 2.5 m/sec - TR peak gradient 25 mmHg - RAP 8 mmHg - RVSP 33 mmHg - IVC diameter 2.2 cm - Name Value Normal Range PV Vmax 0.8 m/sec - PV peak gradient 2 mmHg -
[2018-08-12] MEDS: Heparin VIAL(*) 5000 UNITS/ML VIAL (FIVE THOUSAND) SUBCUT SCH ×2 (06:24→13:14)
[2018-08-12 07:12] LABS: Albumin 3.6 g/dL (3.2-5.2); Albumin/Globulin Ratio 1.4 (1-3); BUN/Creatinine Ratio 19.8 (8-20); Calcium 9.5 mg/dL (8.6-10.3); EGFR African American 63.5 (>60); EGFR Non-African American 52.5 (>60); Globulin 2.6 g/dL (2-4); Indirect Bilirubin 0.3 mg/dL (0.3-1.0); Potassium 4.2 mmol/L (3.5-5.0); Total Bilirubin 0.4 mg/dL (0.2-1.0); Total Protein 6.2 g/dL (6.4-8.9)
[2018-08-12] MEDS ORDERED: Regadenoson* 0.4 MG/5 ML SYRINGE ONE (08:33)
[2018-08-12] MEDS ORDERED: Aminophylline IV* 25 MG/ML 10 ML VIAL ONE (08:34)
[2018-08-12] MEDS: Metoprolol Succinate XL TAB* 25 MG PO SCH (10:24)
[2018-08-12] MEDS: Allopurinol TAB* 100 MG PO SCH (10:24)
[2018-08-12] MEDS: Aspirin 81 mg CHEW TAB* 81 MG TAB.CHEW PO SCH (10:24)
[2018-08-12 11:29] VITALS: BP 159/62
--- NOTE | 2018-08-12 22:07 | DS ---
CC: Dr. Lidia Hilton; Dr. Medardo Kline * DISCHARGE SUMMARY: DATE OF ADMISSION: DATE OF DISCHARGE: 08/12/18 CONDITION: Stable. DISPOSITION: Home. DISCHARGE DIAGNOSES: 1. Epigastric pain and chest pain, noncardiac (stress test low probability); likely due to gastroesophageal reflux disease. 2. Transient aminitis; unclear baseline possibly due to mild viral GI infection given transient diarrhea versus known fatty liver disease by imaging ( viral hepatitis screen pending). 3. Gout, history of. 4. Hyperlipidemia, history of. 5. Coronary artery disease, mild due to calcification seen on CTA. DISCHARGE MEDICATIONS: As follows: 1. Maalox plus 30 mL p.o. q.6 p.r.n. for dyspepsia or indigestion. 2. Aspirin 81 mg p.o. daily. 3. Allopurinol 100 mg p.o. daily. 4. Ascorbic acid 1000 mg p.o. daily. 5. Simvastatin 20 mg p.o. daily. 6. Metoprolol succinate 25 mg p.o. daily. 7. Multivitamins 1 tab p.o. daily. 8. Nifedipine 30 mg p.o. daily. 9. Hunter-3 fatty acids 1000 mg p.o. daily. 10. Pantoprazole 40 mg p.o. b.i.d. 11. Lisinopril 10 mg p.o. daily. HISTORY OF PRESENT ILLNESS/HOSPITAL COURSE: The patient is an 83-year-old lady with history of hypertension, hyperlipidemia, and gout who presented to the emergency room on 08/09/18 with a chief complaint of epigastric pain and chest pain. She stated on admission that she had a prolonged hospitalization stay at [facility] in April 2018, where she was told that she has "ulceration on her colon and bad infection." She stated that she had been weak since and the day prior to admission she felt even more weak and felt that at the morning of admission that she had some diarrhea, but went back to bed and when she got up had her usual breakfast and after taking a shower, she then developed an acute episode of epigastric pain radiating to her chest while she was driving. The quality of pain somewhat changed to something that she cannot characterize to something different where she mentioned that she felt some pressure like sensation subsequently. Because of this as she was admitted for chest pain observation and had been ruled out for PE with a CT angio and which ruled out for acute coronary syndrome with troponins being negative x3. She had a stress test done a few hours prior to her discharge, which was otherwise read as low probability for any action about CAD. Although she does have known CAD based on her CT angio of her chest suggesting coronary calcification. Therefore, she had been advised to continue her aspirin and statin therapy. Her LDL was found to be at goal while her HDL is low at 26.3. The patient also was found to have transient aminitis on admission, which gradually decreased towards normalcy on the day of her discharge. On review of her imaging and abdominal ultrasound, it suggest that she has hepatic steatosis , which can certainly cause intermittent transient transaminitis. However, given her complaint of transient diarrhea on admission, which has subsequently resolved it is possible that she did have some mild viral gastroenteritis that may have led to this transient increase. Hence, hepatic viral screen was sent and we will defer with the patient's PCP to further evaluate results and discuss with the patient and follow up. She had been advised to follow up and/or call her PCP within 3 days post discharge. She had been informed that her stress test suggest low probability for significant actionable coronary artery disease; although there are some calcification seen in her coronaries that indicate that she has some. However, she had been advised that there is no intervention for this other than to eat healthy and make sure her hypertension and hyperlipidemia are well controlled. It would also be helpful if she lost some weight given she is obese by BMI criteria. She had been informed that her abdominal epigastric pain that radiated to her chest may be a symptom of severe reflux. She had been advised to take Protonix twice a day for at least 4 weeks and I will defer with her PCP on follow up if this needs to be continued thereafter. She had been informed that her liver enzymes were slightly elevated in presentation, which since then gradually decreased towards normalcy. Her hepatitis viral screen were drawn prior to her discharge and she was advised to discuss the results with her PCP on follow up. A viral infection has been ruled out with the above test, a possibility of her transient elevated liver enzymes may be due to her fatty liver disease seen on imaging as discussed. She was advised to take Maalox for any breakthrough dyspepsia/indigestion. She was advised that if her symptoms resume or develop new ones or feel unwell for any reason to call her PCP first and if her PCP cannot entertain her due to scheduling issues alone, she was advised to call [facility] if the issue is nonemergent. She was advised to call my office regarding any questions or concerns or further clarifications regarding her discharge plans and/or prescriptions and to take her medications as prescribed. The patient also was found to have uncontrolled hypertension slightly uncontrolled hypertension, which can certainly be a risk factor for coronary artery disease as well as hepatic steatosis. Therefore, lisinopril was added to her regimen given her heart rate is already in the level of 56 to low 60s on metoprolol. REVIEW OF SYSTEMS: The patient denied any headache, dizziness, fevers, chills, nausea, vomiting, chest pain, shortness of breath, increased cough and/or sputum production, abdominal pain, diarrhea, constipation, pain and/or increased frequency on urination, myalgias or arthralgias, throat pain, or new skin lesions. The rest of the 14-point review of systems is otherwise unremarkable. PHYSICAL EXAMINATION: Reveals the most recent vital signs of record shows 159/ 62 blood pressure from previous of 186/72 and previous of 153/65, 63 beats per minute heart rate, 18 per minute respiratory rate, saturating at 96% room air, 97.5 degrees Fahrenheit. General Appearance: The patient is awake, alert, and oriented x3, not in acute distress. HEENT: Normocephalic, atraumatic. PERRLA. Extraocular muscles intact. Negative for icterus. Moist oral mucosa. Negative throat erythema. Neck is soft, supple with no cervical lymphadenopathy. No JVD. Heart: S1, S2 within normal limits. Regular rate and rhythm. No murmurs, rubs, and gallops. Chest: Clear to auscultation bilaterally. Good air entry. No wheezes, rales, or rhonchi. Abdomen is soft, nondistended, nontender. Normoactive bowel sounds x4 quadrants. Extremities: No cyanosis, clubbing, or edema. Psychiatric: No active psychosis, depression, suicidal or homicidal ideations. Skin is warm to touch. TIME SPENT: The total time spent evaluating the patient, reviewing pertinent data, and appropriate documentation is 50 minutes. [id number]/CPS #: [id number] [facility]
[2018-08-13 13:17] LABS: Hepatitis B Surface Antigen Nonreactive (Nonreactive)
[2018-08-13 13:42] LABS: Hepatitis C Antibody Nonreactive (Nonreactive)
== END 2018-08-12 16:46 | disposition home or self-care (01) | DRG 392 ==
LOC: ED 15:46 → MEDTELE 23:38 → OBSVTOIN 08-11 11:26
PROVIDERS: ADMIT Pediatrics; ATTEND Student in an Organized Health Care Education/Training Program
PROC: 4A12XM4 Monitoring of Cardiac Stress, External Approach (ICD-10-PCS; principal; 2018-08-12)
DX: K21.9 Gastro-esophageal reflux disease without esophagitis (principal); R74.0 Nonspecific elevation of levels of transaminase and lactic acid dehydrogenase [LDH]; M10.9 Gout, unspecified; E78.5 Hyperlipidemia, unspecified; I25.10 Atherosclerotic heart disease of native coronary artery without angina pectoris; R19.7 Diarrhea, unspecified; A08.4 Viral intestinal infection, unspecified; E04.2 Nontoxic multinodular goiter; K75.81 Nonalcoholic steatohepatitis (NASH); E83.42 Hypomagnesemia; E83.51 Hypocalcemia; I10 Essential (primary) hypertension; E66.9 Obesity, unspecified; Z88.5 Allergy status to narcotic agent; Z88.8 Allergy status to other drugs, medicaments and biological substances; Z90.89 Acquired absence of other organs; Z79.82 Long term (current) use of aspirin; Z90.49 Acquired absence of other specified parts of digestive tract; Z80.0 Family history of malignant neoplasm of digestive organs; Z83.6 Family history of other diseases of the respiratory system; Z68.31 Body mass index [BMI] 31.0-31.9, adult
CPT/HCPCS: 36415; 71045; 71275; 76705; 78452; 80048; 80053; 80061; 80076; 81003; 82248; 83605; 83690; 83735; 83880; 84443; 84484; 85025; 85379; 85610; 85730; 86140; 86705; 86790; 86803; 87340; 93005; 93017; 93306; 99284; A9270-GY; A9502; G0378; J0280; J1644; J2785; Q9967